=== PATIENT | female | born 1995 | race Caucasian/White ===

== ENCOUNTER → 2019-05-27 | Outpatient (CLI) | payer OTHER ==
--- NOTE | 2019-05-27 10:16 | RADIOLOGY REPORT (SQ) ---
EXAM DESCRIPTION: U/S OB LIMITED COMPLETED DATE/TIME: 05/27/2019 10:03 am REASON FOR STUDY: O26.843 UTERINE SIZE-DATE DISCREPANCY, THIRD TRIMESTER O26.843 UTERINE SIZE-DATE DISCREPANCY, THIRD TRIMESTER COMPARISON: None. TECHNIQUE: Limited transabdominal grayscale ultrasound for evaluation of specific requested obstetri antonietta parameters. LIMITATIONS: None. FINDINGS: CERVICAL LENGTH: Unable to visualize the cervix. LVP: 2.9 cm. FHR: 127 beats per minute. PRESENTATION: Breech. PLACENTA: Posterior/Fundal. ANATOMY: Not assessed. OTHER: No other findings. IMPRESSION: LIMITED OBSTETRICAL ULTRASOUND WITH MEASURED PARAMETERS DELINEATED ABOVE. Trimester of : Third trimester - 28 weeks to delivery. TECHNICAL DOCUMENTATION: JOB ID: [id number] [employer]- All Rights Reserved Reading location - IP/workstation name: [email or web address]
== END ==
LOC: RAD 09:06
PROVIDERS: ATTEND Specialist
DX: O26.843 Uterine size-date discrepancy, third trimester (principal); Z3A.35 35 weeks gestation of pregnancy
CPT/HCPCS: 76815

== ENCOUNTER 2019-05-28 09:50 | Outpatient (CLI) | payer OTHER ==
[2019-05-28 11:16] LABS: APPEARANCE,URINE CLEAR; BILIRUBIN,URINE NEGATIVE (NEGATIVE); COLOR,URINE STRAW; GLUCOSE, URINE NEGATIVE (NEGATIVE); KETONES,URINE NEGATIVE (NEGATIVE); LEUKOCYTE ESTERASE,URINE NEGATIVE (NEGATIVE); NITRITE,URINE NEGATIVE (NEGATIVE); PROTEIN,URINE NEGATIVE (NEGATIVE); URINE SPECIFIC GRAVITY 1.002; UROBILINOGEN,URINE NEGATIVE mg/dL (<2.0)
--- NOTE | 2019-05-28 11:31 | Non Stress Test Report ---
Non Stress Test Datetime Report Generated by CPN: 05/28/2019 11:31 DEMOGRAPHIC EGA NST: 35.3 VITAL SIGNS Temperature - NST: 98.2 Pulse - NST: 67 RESP - NST: 18 NBPSYS NST: 116 NBPDIA NST: 70 MONITORING Monitor Explained: Monitor Explained; Test Explained; Patient Verbalized Understanding Time on Monitor: 05/28/2019 10:07 Time off Monitor: 05/28/2019 11:08 NST Duration: 61 NST INTERVENTIONS NST Interventions: PO Hydration; Reposition Patient Physician Notified NST: A. Berry, CNM BABY A: [id number] BABY A Movement : Present Contraction Frequency : Occasional FHR Baseline : 145 Accelerations : 15X15 Decelerations : None Variability : Moderate 6-25bpm NST Review: Meets Criteria for Reactive NST NST Review and Verified By : ESTEBAN REYNOLDS Results: Reactive NST REPORT Report Trigger: Send Report
[2019-05-28 11:37] LABS: URINE AMPHETAMINES SCREEN NEGATIVE; URINE BARBITURATES SCREEN NEGATIVE; URINE BENZODIAZEPINES SCREEN NEGATIVE; URINE COCAINE SCREEN NEGATIVE; URINE MARIJUANA (THC) SCREEN NEGATIVE; URINE METHADONE SCREEN NEGATIVE; URINE PHENCYCLIDINE SCREEN NEGATIVE
== END 2019-05-28 11:27 | disposition home or self-care (01) ==
LOC: LC 09:50
PROVIDERS: ATTEND Obstetrics & Gynecology
PROC: 4A1HXCZ Monitoring of Products of Conception, Cardiac Rate, External Approach (ICD-10-PCS; principal; 2019-05-28)
DX: O36.5930 Maternal care for other known or suspected poor fetal growth, third trimester, not applicable or unspecified (principal); Z3A.35 35 weeks gestation of pregnancy
CPT/HCPCS: 80307; 81001; 84112

== ENCOUNTER 2019-06-09 06:50 | Inpatient (IN) | payer OTHER ==
[2019-06-04 11:00] LABS: ABSOLUTE LYMPHOCYTES (AUTO) 2.3 10^3/uL (0.5-4.7); ABSOLUTE MONOCYTES (AUTO) 0.4 10^3/uL (0.1-1.4); ABSOLUTE NEUT (AUTO) 5.8 10^3/uL (1.7-8.2); BASOPHILS % (AUTO) 0.3 % (0-2); EOSINOPHILS % (AUTO) 0.5 % (0-6); HEMATOCRIT 35.9 % (36.0-47.0); HEMOGLOBIN 12.6 g/dL (12.0-15.5); LYMPHOCYTES % (AUTO) 27.2 % (13-45); MEAN CORPUSCULAR HEMOGLOBIN 29.6 pg (27.0-33.4); MEAN CORPUSCULAR HGB CONC 35.1 g/dL (32.0-36.0); MEAN CORPUSCULAR VOLUME 84 fl (80-97); MONOCYTES % (AUTO) 4.5 % (3-13); PLATELET COUNT 257 10^3/uL (150-450); RED BLOOD COUNT 4.27 10^6/uL (3.72-5.28); RED CELL DISTRIBUTION WIDTH 13.1 % (11.5-14.0); SEGMENTED NEUTROPHILS % (AUTO) 67.5 % (42-78); TOTAL CELLS COUNTED % (AUTO) 100 %; WHITE BLOOD COUNT 8.6 10^3/uL (4.0-10.5)
[2019-06-04 11:03] LABS: APPEARANCE,URINE SLIGHTLY-CLOUDY; BILIRUBIN,URINE NEGATIVE (NEGATIVE); COLOR,URINE YELLOW; GLUCOSE, URINE NEGATIVE (NEGATIVE); KETONES,URINE NEGATIVE (NEGATIVE); LEUKOCYTE ESTERASE,URINE TRACE (NEGATIVE); NITRITE,URINE NEGATIVE (NEGATIVE); PROTEIN,URINE NEGATIVE (NEGATIVE); URINE SPECIFIC GRAVITY 1.005; UROBILINOGEN,URINE NEGATIVE mg/dL (<2.0)
[2019-06-04 11:20] LABS: URINE AMPHETAMINES SCREEN NEGATIVE; URINE BARBITURATES SCREEN NEGATIVE; URINE BENZODIAZEPINES SCREEN NEGATIVE; URINE COCAINE SCREEN NEGATIVE; URINE MARIJUANA (THC) SCREEN NEGATIVE; URINE METHADONE SCREEN NEGATIVE; URINE PHENCYCLIDINE SCREEN NEGATIVE
[~2019-06-09 06:50] MED LIST: CEFAZOLIN SODIUM 2 GM in DEXTROSE 5%-WATER 100 ML IV PRN; LACTATED RINGERS 1000 ML IV PRN; LIDOCAINE 0.5% INJ-PF (5 MG/ML) 50 ML SDV SUBCUT PRN; RINGERS SOLUTION,LACTATED 1,000 ML IV PRN
[2019-06-17] MEDS ORDERED: CEFAZOLIN SODIUM 2 GM in DEXTROSE 5%-WATER 100 ML IV PRN (05:00)
[2019-06-17] MEDS ORDERED: RINGERS SOLUTION,LACTATED 1,000 ML IV PRN ×2 (05:25→10:34)
[2019-06-17] MEDS ORDERED: RINGERS SOLUTION,LACTATED 1,000 ML IV ONE (05:30)
--- NOTE | 2019-06-17 06:40 | PDOC H&P ---
History of Present Illness Admission Date/PCP: 06/17/19 05:20 Patient complains of: Presenting for scheduled Primary section: BREECH. Good FM, No LOF or VB. No regular ctx. complicated by IUGR in 4% on [facility] MFM on 06/14/19 with EFW of 2,466 gms or 5 lb 7 oz (CHRISTOPHER at that time 7.9 with normal dopplers). Also complicating is breech presentation, hx UTI with pyelonephritis in 2i019, PAP ASCUS HPV +, History of Present Illness: PADMINI CADE is a 24 year old female Past Medical History Cardiac Medical History: Reports: None Pulmonary Medical History: Reports: None EENT Medical History: Reports: None Neurological Medical History: Reports: None Denies: Seizures Endocrine Medical History: Reports: None Renal/ Medical History: Reports: None Malignancy Medical History: Reports: None GI Medical History: Reports: None, Gastroesophageal Reflux Disease - REFLUX Denies: Hiatal Hernia Psychiatric Medical History: Reports: Depression Past Surgical History Past Surgical History: Reports: Tonsillectomy, Other - wisdom teeth extracted Social History Smoking Status: Never Smoker Family History Family History: Reviewed & Not Pertinent Parental Family History Reviewed: Yes Children Family History Reviewed: Yes Sibling(s) Family History Reviewed.: Yes Medication/Allergy Home Medications: Vits96/Iron Fum/Folic [ Tablet] 1 each PO DAILY 05/28/19 Allergies/Adverse Reactions: No Known Allergies Allergy (Unverified 05/28/19 10:31) Physical Exam - Physical Exam Vital Signs: Intake & Output 06/15/19 06/16/19 06/17/19 06:59 06:59 06:59 Weight 60 kg General appearance: PRESENT: no acute distress Respiratory exam: PRESENT: clear to auscultation ping Cardiovascular exam: PRESENT: RRR, +S1, +S2 GI/Abdominal exam: PRESENT: normal bowel sounds, soft Psychiatric exam: PRESENT: appropriate affect Skin exam: PRESENT: dry, warm Result Laboratory Results: 06/04/19 10:00 Assessment & Plan - Plan Summary Plan Summary: 24 yo G1 at 38.2 wks EGA for primary section scheduled d/t breech presentation and IUGR -admit to LDR -NPO since midnight -LR bolus x 1 liter then continue at 125 cc/hr -Ancef 2 gms on hold for OR -SCDs -abdominal prep -Plan for primary section.
[2019-06-17 06:47] LABS: ABSOLUTE LYMPHOCYTES (AUTO) 2.9 10^3/uL (0.5-4.7); ABSOLUTE MONOCYTES (AUTO) 0.4 10^3/uL (0.1-1.4); ABSOLUTE NEUT (AUTO) 5.2 10^3/uL (1.7-8.2); BASOPHILS % (AUTO) 0.3 % (0-2); EOSINOPHILS % (AUTO) 0.5 % (0-6); HEMATOCRIT 33.1 % (36.0-47.0); HEMOGLOBIN 11.6 g/dL (12.0-15.5); LYMPHOCYTES % (AUTO) 33.7 % (13-45); MEAN CORPUSCULAR HEMOGLOBIN 29.5 pg (27.0-33.4); MEAN CORPUSCULAR VOLUME 84 fl (80-97); PLATELET COUNT 210 10^3/uL (150-450); RED BLOOD COUNT 3.92 10^6/uL (3.72-5.28); RED CELL DISTRIBUTION WIDTH 13.5 % (11.5-14.0); SEGMENTED NEUTROPHILS % (AUTO) 60.5 % (42-78); TOTAL CELLS COUNTED % (AUTO) 100 %; WHITE BLOOD COUNT 8.6 10^3/uL (4.0-10.5)
[2019-06-17 06:55] LABS: URINE AMPHETAMINES SCREEN NEGATIVE; URINE BARBITURATES SCREEN NEGATIVE; URINE BENZODIAZEPINES SCREEN NEGATIVE; URINE COCAINE SCREEN NEGATIVE; URINE MARIJUANA (THC) SCREEN NEGATIVE; URINE METHADONE SCREEN NEGATIVE; URINE PHENCYCLIDINE SCREEN NEGATIVE
[2019-06-17 06:59] LABS: APPEARANCE,URINE SLIGHTLY-CLOUDY; BILIRUBIN,URINE NEGATIVE (NEGATIVE); COLOR,URINE YELLOW; GLUCOSE, URINE NEGATIVE (NEGATIVE); KETONES,URINE NEGATIVE (NEGATIVE); URINE SPECIFIC GRAVITY 1.017
[2019-06-17 07:00] LABS: LEUKOCYTE ESTERASE,URINE NEGATIVE (NEGATIVE); NITRITE,URINE NEGATIVE (NEGATIVE); PROTEIN,URINE NEGATIVE (NEGATIVE); UROBILINOGEN,URINE NEGATIVE mg/dL (<2.0)
[2019-06-17] MEDS ORDERED: OXYTOCIN 10 UNIT/ML VIAL ONE ×2 (07:26→15:31)
[2019-06-17] MEDS ORDERED: MIDAZOLAM 2 MG/2 ML INJ ONE (07:26)
[2019-06-17] MEDS ORDERED: OXYTOCIN/NORMAL SALINE 0 UNIT/0 ML RTUINJ ONE (07:27)
[2019-06-17] MEDS ORDERED: MORPHINE SULFATE 10 MG/ML INJ ONE (07:27)
[2019-06-17] MEDS ORDERED: ONDANSETRON HCL INJ/PF 4 MG/2 ML SDV ONE (07:27)
[2019-06-17] MEDS ORDERED: CEFAZOLIN SODIUM 1 GM in DEXTROSE 5%-WATER 50 ML IV PRN (07:45)
[2019-06-17] MEDS ORDERED: MORPHINE SULFATE 10 MG/ML INJ IV PRN (08:10)
[2019-06-17] MEDS ORDERED: PROMETHAZINE HCL INJ 25 MG/1 ML VIAL IV PRN ×3 (08:10→10:34)
[2019-06-17] MEDS ORDERED: MEPERIDINE HCL/PF INJ 25 MG/1 ML DISP.SYRIN IV PRN (08:10)
[2019-06-17] MEDS ORDERED: FENTANYL CITRATE INJ/PF 100 MCG/2 ML AMPUL IV PRN ×3 (08:10)
[2019-06-17] MEDS ORDERED: DIPHENHYDRAMINE HCL 50 MG/ML VIAL IV PRN (08:10)
[2019-06-17] MEDS ORDERED: FENTANYL CITRATE INJ/PF 100 MCG/2 ML AMPUL ONE (09:50)
[2019-06-17] MEDS ORDERED: ACETAMINOPHEN 1,000 MG/100 ML RTUPB IV PRN (10:34)
[2019-06-17] MEDS ORDERED: DIPH/PERTUSS(ACELL)/TETANUS VAC/PF 0.5 ML SYR (>=10YO) IM PRN (10:34)
[2019-06-17] MEDS ORDERED: HYDROMORPHONE HCL INJ/PF 2 MG/ML AMPULE IV PRN (10:34)
[2019-06-17] MEDS ORDERED: SIMETHICONE 80 MG TAB.CHEW PO PRN (10:34)
[2019-06-17] MEDS ORDERED: ACETAMINOPHEN 325 MG TABLET PO PRN (10:34)
[2019-06-17] MEDS ORDERED: OXYTOCIN/NORMAL SALINE 20 UNIT/1,000 ML RTUINJ IV PRN (10:34)
[2019-06-17] MEDS ORDERED: MEASLES,MUMPS&RUBELLA VACC/PF 0.5 ML VIAL SUBCUT PRN (10:34)
[2019-06-17] MEDS: KETOROLAC TROMETHAMINE INJ/PF 30 MG/1 ML SDV IV SCH ×2 (13:12→21:11)
--- NOTE | 2019-06-17 13:21 | Brief Operative Note ---
BRIEF OPERATIVE REPORT DATE OF SURGERY: 06/17/19 TIME OF SURGERY: 08:00 PREOPERATIVE DIAGNOSIS: Breech, , 38+2ega, Abnormal pap, IUGR POSTOPERATIVE DIAGNOSIS: GWEN - nuchal cord SURGEON: PAULA CHATTERJEE FINDINGS: Footling breech right leg, Nuchal cord and body cord, Apgars 7/9, baby girl delivered at 0804, weight 2480g, IVF 1000ml, UOP 100ml, EBL 600ml COMPLICATIONS: None ESTIMATED BLOOD LOSS: 600 TISSUE REMOVED OR ALTERED: placenta and cord sent to pathology TECHNICAL PROCEDURE: Primary section
[2019-06-17] MEDS: OXYCODONE-ACETAMINOPHEN 5-325 MG TABLET PO PRN ×2 (14:50→19:51)
[2019-06-17] MEDS ORDERED: LIDOCAINE 1% INJ-PF (10 MG/ML) 30 ML SDV ONE (15:31)
[2019-06-17] MEDS ORDERED: MISOPROSTOL 0.2 MG TABLET ONE (15:31)
[2019-06-17] MEDS ORDERED: OXYTOCIN/NORMAL SALINE 20 UNIT/1,000 ML RTUINJ ONE (15:31)
[2019-06-17] MEDS: DOCUSATE SODIUM 100 MG CAPSULE PO SCH (18:00)
--- NOTE | 2019-06-17 18:57 | PDOC DELIVERY SUMMARY ---
Delivery Summary - Maternal Hx : I Hx Para: 0 Hx # Term Pregnancies: 1 Hx # Pregnancies: 0 Hx Total # of Abortions (Sponateous & Elective): 0 Number of Living Children: 0 CARMELITA: 06/29/19 Gestational Age: 38+2 Risk Factors: Other - IUGR Ruptured Membranes: AROM Time of Rupture: 08:03 Fluids: Clear - Delivery Labor: Not In Labor Presentation: Breech Heart Rate Monitoring: Done Pre-Operatively Uterine Contraction Monitoring: External Support Person Present: Yes Location: LD : Scheduled Placenta: Within Normal Limits Placenta Description: normal Number of Vessels (Cord): 3 Nuchal Cord: Yes Delivery of Placenta Date: 06/17/19 Delivery of Placenta Time: 08:05 Estimated Blood Loss: 600 Delivery Quantitative Blood Loss (QBL): 622 - Medications Type of Anesthesia:: Spinal - Assess and Care Baby 1 Female Delivery of Infant Date: 06/17/19 Delivery of Time: 08:04 at 1 minute: 7 at 5 minutes: 9 Preprinted Number On Band: [id number] Skin to Skin: Yes Skin to Skin (Mins): 9 To Nursery At: 08:27 Mode of Transport: Bassinet Infant Delivery Weight: 2,480 Delivery Length: 18.11 in - Delivery Personnel PROFESSOR OF GEOGRAPHY: YAEL HENDERSON Nursecrystal RN: RIC LINDA MD: PAULA CHATTERJEE
--- NOTE | 2019-06-17 18:59 | Operative Report ---
Operative Report DATE OF SURGERY: 06/17/19 PREOPERATIVE DIAGNOSIS: Breech, , 38+2ega, Abnormal pap, IUGR POSTOPERATIVE DIAGNOSIS: GWEN - nuchal cord OPERATION: Primary section SURGEON: PAULA CHATTERJEE ANESTHESIA: Spinal TISSUE REMOVED OR ALTERED: placenta and cord sent to pathology COMPLICATIONS: None ESTIMATED BLOOD LOSS: 600 QUANTITATIVE BLOOD LOSS: 622 INTRAOPERATIVE FINDINGS: Footling breech right leg, Nuchal cord and body cord, Apgars 7/9, baby girl delivered at 0804, weight 2480g, IVF 1000ml, UOP 125ml, EBL 600ml PROCEDURE: Anesthesia provider: [Guille Cornejo CRNA, Emily DAVID] Urine output: [125ml] IV fluids: [1000ml] Indications: [24yo at 38+2ega presents for scheduled Primary section due to Severe IUGR less than 3% with borderline dopplers. She was seen by [facility] and recommendations for delivery at 37wks then after her appointment on 06/07/2019 the recommendation was changed to delivery in the 38th week. She was seen on 06/14/2019 at [facility] and they continued to recommend delivery at 38wks. THe risks, benefits, alternatives were reviewed and she desires to proceed with planned section.] Procedure: The patient was taken to the operating room where spinal anesthesia was obtained and found to be adequate. She was then prepped and draped in the normal sterile fashion and placed in the dorsal supine position with a leftward tilt. A Pfannenstiel skin incision was then made and carried through to the underlying layers of the fascia with the scalpel. The fascia was incised in the midline and the incision extended laterally with the Snyder scissors. The superior aspect of the fascial incision was then grasped with Gila clamps elevated and the underlying rectus muscles dissected off [bluntly]. Attention was then turned to the inferior aspect of the fascial incision which in a similar fashion was grasped, tented up with Gila clamps, and the rectus muscles dissected off [bluntly]. The rectus muscles were then in the midline and the peritoneum at the amount identified and entered [bluntly]. The peritoneal incision was then extended superiorly and inferiorly with good visualization of the bladder. The bladder blade was inserted and the vesicouterine peritoneum identified grasped with [place] pickups and entered sharply with the Metzenbaum scissors. This incision was then extended laterally with the Metzenbaum scissors and a bladder flap created digitally. The bladder blade was then reinserted and the lower uterine segment incised in a transverse fashion with the scalpel. The uterine incision was then extended bluntly. The bladder blade was removed and the infant was delivered from footling breech presentation atraumatically. The nose and mouth were suctioned and the cord doubly clamped and cut. And the was handed off to waiting pediatricians. The placenta was then delivered spontaneously and the uterus exteriorized and cleared of all clots and debris. The uterine incision was then repaired with 1- 0 Vicryl in a running locked fashion. A second layer of the same suture was used to obtain hemostasis via imbrication of the initial layer. The bladder flap was then repaired with 3-0 chromic in a running fashion. The uterus was returned to the patient's abdomen and Interceed was placed overlying the uterine incision to prevent adhesions. Surgicel was placed for additional hemostasis. The gutters were cleared of all clots and debris. All operative sites were noted to be hemostatic. The fascia was reapproximated with 0 Vicryl in a running fashion from each lateral edge to the midline. The skin was closed with 3-0 Monocryl in a running subcuticular fashion with overlying Dermabond for additional dressing as well as wound closure. The patient tolerated the procedure well. Sponge lap needle and instrument counts are correct times 2. 2 g of Ancef were given prior to skin incision. The patient was taken to the recovery area awake and in stable condition.
[2019-06-18] MEDS: OXYCODONE-ACETAMINOPHEN 5-325 MG TABLET PO PRN ×4 (04:09→20:59)
[2019-06-18] MEDS: KETOROLAC TROMETHAMINE INJ/PF 30 MG/1 ML SDV IV SCH (05:01)
[2019-06-18 06:34] LABS: HEMATOCRIT 27.9 % (36.0-47.0); HEMOGLOBIN 9.7 g/dL (12.0-15.5); MEAN CORPUSCULAR HEMOGLOBIN 29.3 pg (27.0-33.4); MEAN CORPUSCULAR HGB CONC 34.6 g/dL (32.0-36.0); MEAN CORPUSCULAR VOLUME 85 fl (80-97); PLATELET COUNT 190 10^3/uL (150-450); RED CELL DISTRIBUTION WIDTH 13.7 % (11.5-14.0); WHITE BLOOD COUNT 10.3 10^3/uL (4.0-10.5)
[2019-06-18] MEDS: DOCUSATE SODIUM 100 MG CAPSULE PO SCH ×2 (10:32→17:27)
[2019-06-18] MEDS: PRENATAL VITAMIN W DHA CAPSULE PO SCH (10:32)
--- NOTE | 2019-06-18 12:21 | PDOC PROGRESS REPORT ---
Subjective-OB Progress Note for:: 06/18/19 Subjective: Pt doing well, states she is ambulatory, voiding without difficulty and on reg diet with + flatus. No concerns. Physical Exam (OB) Vital Signs: Temp Pulse Resp BP Pulse Ox 98.0 F 72 16 119/75 99 06/18/19 12:00 06/18/19 12:00 06/18/19 12:00 06/18/19 12:00 06/18/19 12:00 Intake & Output 06/17/19 06/18/19 06/19/19 06:59 06:59 06:59 Intake Total 960 480 Output Total 2120 Balance -1160 480 Weight 60 kg - Dressing Removed: No Incision: Well Approximated Closure Type: Surgical Glue - Lochia Lochia Amount: Scant < 10 ml Lochia Color: Rubra/Red - Abdomen Description: Tender, Soft Hernia Present: No Fundal Description: Firm, Midline Fundal Height: u/u - u/2 Objective-Diagnostic Laboratory: 06/18/19 06:20 06/18/19 06:20 WBC 10.3 RBC 3.30 L Hgb 9.7 L Hct 27.9 L MCV 85 MCH 29.3 MCHC 34.6 RDW 13.7 Plt Count 190 Assessment and Plan(PN) - Assessment and Plan (1) Depression with anxiety Is this a current diagnosis for this admission?: Yes (2) IUGR (intrauterine growth restriction) Is this a current diagnosis for this admission?: Yes (3) Malpresentation of fetus Qualifiers: malpresentation type: breech Is this a current diagnosis for this admission?: Yes (4) Term Is this a current diagnosis for this admission?: Yes - Time Spent with Patient Time with patient: Less than 15 minutes Medications reviewed and adjusted accordingly: Yes - Disposition Anticipated Discharge: Home Within: within 24 hours
[2019-06-18] MEDS: IBUPROFEN 800 MG TABLET PO SCH ×3 (14:07→23:25)
[2019-06-19] MEDS: OXYCODONE-ACETAMINOPHEN 5-325 MG TABLET PO PRN ×2 (04:53→11:08)
[2019-06-19] MEDS: IBUPROFEN 800 MG TABLET PO SCH ×2 (06:14→11:08)
[2019-06-19] MEDS: PRENATAL VITAMIN W DHA CAPSULE PO SCH (09:25)
[2019-06-19] MEDS: DOCUSATE SODIUM 100 MG CAPSULE PO SCH (09:25)
--- NOTE | 2019-06-19 12:02 | PDOC DISCHARGE SUMMARY ---
Impression - Admit/DC Date/PCP Admission Date/Primary Care Provider: 06/17/19 05:20 Discharge Date: 06/19/19 - Discharge Diagnosis (1) Depression with anxiety Is this a current diagnosis for this admission?: Yes (2) IUGR (intrauterine growth restriction) Is this a current diagnosis for this admission?: Yes (3) Malpresentation of fetus Is this a current diagnosis for this admission?: Yes (4) Term Is this a current diagnosis for this admission?: Yes - Additional Information Resuscitation Status: Full Code Discharge Diet: As Tolerated, Regular Discharge Activity: Balance Activity w/Rest, Pelvic Rest Prescriptions: Oxycodone HCl/Acetaminophen [Percocet 5-325 mg Tablet] 1 tab PO Q4HP PRN #30 tablet PRN Reason: Ibuprofen [Motrin 800 mg Tablet] 800 mg PO Q8HP PRN #60 tablet PRN Reason: Home Medications: Vits96/Iron Fum/Folic [ Tablet] 1 each PO DAILY 05/28/19 Ibuprofen [Motrin 800 mg Tablet] 800 mg PO Q8HP PRN #60 tablet 06/19/19 Oxycodone HCl/Acetaminophen [Percocet 5-325 mg Tablet] 1 tab PO Q4HP PRN #30 tablet 06/19/19 HPI Reason(s) for Admission: Ceasarean Section-Primary, Status Procedures: None Intrapartum Procedure(s): : Low Cervical, Transverse Results Laboratory Results: WBC 10.3 10^3/uL (4.0-10.5) 06/18/19 06:20 RBC 3.30 10^6/uL (3.72-5.28) L 06/18/19 06:20 Hgb 9.7 g/dL (12.0-15.5) L 06/18/19 06:20 Hct 27.9 % (36.0-47.0) L 06/18/19 06:20 MCV 85 fl (80-97) 06/18/19 06:20 MCH 29.3 pg (27.0-33.4) 06/18/19 06:20 MCHC 34.6 g/dL (32.0-36.0) 06/18/19 06:20 RDW 13.7 % (11.5-14.0) 06/18/19 06:20 Plt Count 190 10^3/uL (150-450) 06/18/19 06:20 Lymph % (Auto) 33.7 % (13-45) 06/17/19 06:40 [place] % (Auto) 5.0 % (3-13) 06/17/19 06:40 Eos % (Auto) 0.5 % (0-6) 06/17/19 06:40 Baso % (Auto) 0.3 % (0-2) 06/17/19 06:40 Absolute Neuts (auto) 5.2 10^3/uL (1.7-8.2) 06/17/19 06:40 Absolute Lymphs (auto) 2.9 10^3/uL (0.5-4.7) 06/17/19 06:40 Absolute Monos (auto) 0.4 10^3/uL (0.1-1.4) 06/17/19 06:40 Absolute Eos (auto) 0.0 10^3/uL (0.0-0.6) 06/17/19 06:40 Absolute Basos (auto) 0.0 10^3/uL (0.0-0.2) 06/17/19 06:40 Seg Neutrophils % 60.5 % (42-78) 06/17/19 06:40 Urine Color YELLOW 06/17/19 06:20 Urine Appearance SLIGHTLY-CLOUDY 06/17/19 06:20 Urine pH 6.0 (5.0-9.0) 06/17/19 06:20 Ur Specific [place] 1.017 06/17/19 06:20 Urine Protein NEGATIVE mg/dL (NEGATIVE) 06/17/19 06:20 Urine Glucose (UA) NEGATIVE mg/dL (NEGATIVE) 06/17/19 06:20 Urine Ketones NEGATIVE mg/dL (NEGATIVE) 06/17/19 06:20 Urine Blood NEGATIVE (NEGATIVE) 06/17/19 06:20 Urine Nitrite NEGATIVE (NEGATIVE) 06/17/19 06:20 Urine Bilirubin NEGATIVE (NEGATIVE) 06/17/19 06:20 Urine Urobilinogen NEGATIVE mg/dL (<2.0) 06/17/19 06:20 Ur Leukocyte Esterase NEGATIVE (NEGATIVE) 06/17/19 06:20 Urine WBC (Auto) 1 /HPF 06/17/19 06:20 Urine RBC (Auto) 1 /HPF 06/17/19 06:20 Urine Bacteria (Auto) 2+ /HPF 06/04/19 10:00 Squamous Epi Cells Auto 2 /HPF 06/17/19 06:20 Urine Mucus (Auto) OCC /LPF 06/17/19 06:20 Urine Ascorbic Acid NEGATIVE (NEGATIVE) 06/17/19 06:20 Urine Opiates Screen NEGATIVE 06/17/19 06:20 Urine Methadone Screen NEGATIVE 06/17/19 06:20 Ur Barbiturates Screen NEGATIVE 06/17/19 06:20 Ur Phencyclidine Scrn NEGATIVE 06/17/19 06:20 Ur Amphetamines Screen NEGATIVE 06/17/19 06:20 U Benzodiazepines Scrn NEGATIVE 06/17/19 06:20 Urine Cocaine Screen NEGATIVE 06/17/19 06:20 U Marijuana (THC) Screen NEGATIVE 06/17/19 06:20 Blood Type A POSITIVE 06/17/19 06:40 Antibody Screen NEGATIVE 06/17/19 06:40 Plan Plan of Treatment: f/u at [facility] for incision check Time Spent: Less than 30 Minutes
[2019-06-19 15:29] VITALS: BP 116/81
== END 2019-06-19 16:14 | disposition home or self-care (01) | DRG 788 ==
LOC: 2N 06-17 05:20
PROVIDERS: ADMIT Student in an Organized Health Care Education/Training Program; ATTEND Student in an Organized Health Care Education/Training Program
PROC: 10D00Z1 Extraction of Products of Conception, Low, Open Approach (ICD-10-PCS; principal; 2019-06-17 07:45)
DX: O32.1XX0 Maternal care for breech presentation, not applicable or unspecified (principal); O36.5930 Maternal care for other known or suspected poor fetal growth, third trimester, not applicable or unspecified; O69.81X0 Labor and delivery complicated by cord around neck, without compression, not applicable or unspecified; O69.2XX0 Labor and delivery complicated by other cord entanglement, with compression, not applicable or unspecified; O99.344 Other mental disorders complicating childbirth; F41.8 Other specified anxiety disorders; Z3A.38 38 weeks gestation of pregnancy; Z37.0 Single live birth
CPT/HCPCS: 1961; 36415; 59025; 80307; 81001; 85025; 85027; 86850; 86900; 86901; 88307; 94760; 94799; C1765; J0690; J1170; J1885; J2250; J2270; J2405; J2550; J2590; J3010; J3490; J7060; J7120